=== PATIENT | female | born 1975 ===

== ENCOUNTER 2018-01-25 18:19 | Emergency (ER) | payer OTHER ==
[2018-01-25 18:24] VITALS: BMI 40.8
[2018-01-25 18:42] VITALS: BP 123/77; PULSE 93; TEMP 97.9
--- NOTE | 2018-01-25 18:55 | PDOC ---
History of Present Illness - General Chief Complaint: Pain, Acute Stated Complaint: BILAT KNEE /LEG PAIN Time Seen by Provider: 01/25/18 18:25 History Source: Patient Exam Limitations: No Limitations - History of Present Illness Initial Comments: 01/25/18 18:53 42y F hx of ossible arhthritis presents with 2 weeks of b/l knee pain. Pt states it started off with pain in the L leg, associated with some swelling and possible flea bites from a neighbors home. The pain spread within a day to the other leg, also associated with some pruritic bites and leg swelling. Pt notse some subjective chills, but denies any fevers, sob, cp, hemoptysis/cough, abd pain, n/v, diaphoresis, diarrhea, melena, bpr, dysuria, freuency, hematuria. no recent travel or known sick contacts. Pt nots she sometimes has swelling of her legs but never this bad. Past History - Past Medical History Allergies/Adverse Reactions: Allergies Allergy/AdvReac Type Severity Reaction Status Date / Time No Known Allergies Allergy Verified 01/25/18 18:20 Home Medications: Ambulatory Orders Cephalexin Monohydrate [Keflex -] 500 mg PO Q6H #28 capsule 01/25/18 CVA: No COPD: No - Suicide/Smoking/Psychosocial Hx Smoking History: Never smoked Hx Alcohol Use: No Drug/Substance Use Hx: No Substance Use Type: None Review of Systems - Review of Systems Able to Perform ROS?: Yes Comments:: 01/25/18 19:24 Constitutional - no reported Fever, Chills, HEENT: no reported vision changes, sore throat Respiratory: no reported cough, sob, hemoptysis Cardiac: no reported chest pain, palpitations, light headedness, leg swelling Abd/GI: no reported abd pain, nausea, vomiting, blood per rectum, melena, diarrhea : no reported dysuria, frequency, discharge Musculskelatal - +leg edema and pain no reported back pain, joint swelling skin - no reported bruising, erythema, rash neurological: no reported headache, numbness, focal weakness, tingling, ataxia, hematologic: no reported easy bruising, easy bleeding *Physical Exam - Vital Signs Last Vital Signs Temp Pulse Resp BP Pulse Ox 97.9 F 93 H 18 123/77 100 01/25/18 18:20 01/25/18 18:20 01/25/18 18:20 01/25/18 18:20 01/25/18 18:20 - Physical Exam Comments: 01/25/18 19:24 GENERAL: The patient is awake, alert, and fully oriented, Nontoxic - in no acute distress, obese HEAD: Normocephalic, atraumatic. EYES: extraocular movements intact, sclera anicteric, conjunctiva clear. ENT: Normal voice, Moist mucous membranes. NECK: Normal range of motion, supple LUNGS: Breath sounds equal, clear to auscultation bilaterally. No wheezes, no rhonchi, no rales. HEART: Regular rate and rhythm, normal S1 and S2 without murmur, rub or gallop. ABDOMEN: Soft, nontender, normoactive bowel sounds. No guarding, no rebound. . No CVA tenderness EXTREMITIES: Normal range of motion, tense edema to b/l LE (R>L), occasional hyperpigemented areas that appear to be old insect bites on the L schumacher upper schumacher, left distal schumacher. diffuse mild tenderness to palaption. neg homans sign, mild warmth to palpation on L anterior schumacher NEUROLOGICAL: No facial assymetry, Normal speech, movinga ll 4 extremities spontaneously and symmetrically PSYCH: Normal mood, normal affect. SKIN: Warm, Dry, normal turgor, Heart Score/ECG Review - ECG Impressions Comment:: 01/25/18 19:55 Twelve-lead EKG was performed and reviewed by me. There is normal sinus rhythm with a normal rate. Rate of 72 The axis is normal. The intervals are normal. There is normal R wave progression There are no ST or T wave abnormalities. 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 no prior hx of dvt/pe, not on ocps. xrays neg for pathology will obtain DVT study, if neg, will treat for cellulitis 01/25/18 21:41 pt declines staying for DVT study will leave AMA will treat with ABX, she will return tomorrwo for her DVT study.I discussed concern for DVT possibly progressing to PE she states she understands but needs to leave as her son neds to get to work. Patient is alert and oriented, and expressed that they would like to leave AGAINST MEDICAL ADVICE. I discussed with them the risks of leaving include , pulmonary embolsim, respiratory failure, cardiac arrest. I believe that the patient understands our discussion and is capable of making an informed decision about leaving against medical advice. I also discussed with the patient that they may return at any time to complete their workup. *DC/Admit/Observation/Transfer Diagnosis at time of Disposition: Leg swelling - Discharge Dispostion Disposition: AGAINST MEDICAL ADVICE Decision to Admit order: No - Prescriptions Prescriptions: Cephalexin Monohydrate [Keflex -] 500 mg PO Q6H #28 capsule - Referrals Referrals: Brady Ferrari [Other] - Patient Instructions Printed Discharge Instructions: DI for Dependent Edema Additional Instructions: You are leaving against medical advice. We have not completed your workup. We are pending an ultrasound of your legs to r/o a blood clot. You were written a prescription for keflex (an antibiotic) for cellulitis. Take the medications as prescribed return at any time to have your DVT. Return to the emergency department if you havea ny shortness of breath, chest pain, or are coughing blood. Print Language: AZERI - Post Discharge Activity
[2018-01-25] MEDS ORDERED: traMADol HCL 50 MG TABLET PO ONE (19:27)
[2018-01-25] MEDS ORDERED: traMADol HCL 50 MG TABLET ONE (19:38)
[2018-01-25 19:49] LABS: BASO % 1.5 % (0-2.0); EOS % 3.3 % (0-4.5); HEMATOCRIT 33.8 % (32.4-45.2); HEMOGLOBIN 10.9 GM/dl (10.7-15.3); MCH 25.2 pg (25.7-33.7); MCHC 32.3 g/dl (32.0-36.0); MEAN CELL VOLUME 78.1 fl (80-96); MEAN PLT VOLUME 7.4 fl (7.5-11.1); NEUT % 65.5 % (42.8-82.8); PLATELET COUNT 382 K/MM3 (134-434); RBC 4.33 M/mm3 (3.60-5.2); RDW 14.6 % (11.6-15.6); WHITE BLOOD COUNT 7.8 K/mm3 (4.0-10.8)
[2018-01-25 19:52] LABS: LYMPH % 21.7 % (8-40)
[2018-01-25 20:04] LABS: ALBUMIN 3.4 g/dl (3.5-5.0); ALK PHOS 95 U/L (32-92); ANION GAP 7 MMOL/L (8-16); BILIRUBIN,TOTAL 0.4 mg/dl (0.2-1.0); BLOOD UREA NITROGEN 10 mg/dl (7-18); CALCIUM 8.8 mg/dl (8.4-10.2); CHLORIDE 102 mmol/L (98-107); CO2 25 mmol/L (22-28); CREATININE 0.7 mg/dl (0.6-1.3); GLUCOSE,RANDOM 99 mg/dl (74-106); POTASSIUM 3.8 mmol/L (3.5-5.1); SGOT/AST 18 U/L (10-42); SGPT/ALT 18 U/L (10-40); SODIUM 134 mmol/L (136-145)
[2018-01-25] MEDS ORDERED: CEPHALEXIN MONOHYDRATE 500 MG CAPSULE (UD) PO ONE (21:40)
[2018-01-25] MEDS ORDERED: CEPHALEXIN MONOHYDRATE 500 MG CAPSULE (UD) ONE (21:42)
[2018-01-25 21:45] LABS: N-TERMINAL BNP 44.5 pg/ml (5-125)
--- NOTE | 2018-01-29 23:52 | EKG ---
Test Reason : Blood Pressure : / mmHG Vent. Rate : 072 BPM Atrial Rate : 072 BPM P-R Int : 156 ms QRS Dur : 070 ms QT Int : 418 ms P-R-T Axes : 066 031 039 degrees QTc Int : 457 ms NORMAL SINUS RHYTHM NORMAL ECG NO PREVIOUS ECGS AVAILABLE Confirmed by EZRA RAINEY MD ([id number]) on 01/29/2018 11:52:21 PM Referred By: DR EMMANUEL Confirmed By:EZRA RAINEY MD
== END 2018-01-25 21:53 | disposition left against medical advice (07) ==
LOC: FER 18:19
DX: M79.89 Other specified soft tissue disorders (principal)
CPT/HCPCS: 36415; 71046-TC-FY; 73560-TC-LT-FY; 73560-TC-RT-FY; 80053; 83880; 85025; 93005; 99282-25

== ENCOUNTER 2018-01-31 01:40 | Emergency (ER) | payer OTHER ==
[2018-01-31 01:48] VITALS: BP 132/68; PULSE 88; TEMP 98.1; BMI 40.8
--- NOTE | 2018-01-31 02:01 | PDOC ---
History of Present Illness - General Chief Complaint: Pain Stated Complaint: LT LEG PAIN/REDNESS Time Seen by Provider: 01/31/18 01:55 History Source: Patient Exam Limitations: No Limitations - History of Present Illness Initial Comments: 01/31/18 01:59 This is a 42-year-old female who comes in for a ultrasound of her left lower extremity. Patient was here 5 days ago and told she needed an ultrasound however she did not want to wait then for the ultrasound. So she left and now is back this morning for an ultrasound. patient otherwise denies any chest pain , shortness of breath, nausea vomiting or diarrhea. patient denies history of dvts in the past. Patient is currently on keflex as the ED doctor from her prior visit that there may be a infectious component to it so started her on the Keflex. Patient said she has been compliant with taking Keflex. PAST MEDICAL HISTORY: no significant history PAST SURGICAL HISTORY: no significant history FAMILY HISTORY: no pertinant history SOCIAL HISTORY: Pt lives with family and is employed. MEDICATIONS: reviewed ALLERGIES: As per nursing notes ROS General: No fevers or chills, no weakness, no weight loss HEENT: No change in vision. No sore throat,. No ear pain CardioVascular: No chest pain or shortness of breath Respiratory:No cough, or wheezing. Gastrointestinal: no nausea, vomiting, diarrhea or constipation, No rectal bleeding Genitourinary: No dysuria, hematuria, or frequency Musculoskeletal: . No joint pain or swelling, leg discomfort Neurologic: No headache, vertigo, dizziness or loss of consciousness Psychiatric: nor depression Skin: No rashes or easy bruising Endocrine: no increased thirst or abnormal weight change Allergic: no skin or latex allergy All other systems reviewed and normal GENERAL: The patient is a morbidly obese women. She is awake, alert, and fully oriented, in no acute distress. HEAD: Normal with no signs of trauma. EARS: Bilateral ears are normal. EYES: Pupils equal, round and reactive to light, extraocular movements intact, sclera anicteric, conjunctiva clear. EXTREMITIES: Normal range of motion, + mild edema left lower extremity, there is no erythema or discharge. NEUROLOGICAL: Normal speech, normal gait. grossly intact PSYCH: Normal mood, normal affect. SKIN: Warm, Dry, normal turgor, no rashes or lesions noted. Assessment and plan: This is a 42-year-old female who comes in 5 days after she was told she should have a DVT scan. However Ultrasound was negative for DVT. Patient sleeping comfortably, patient discharged home Past History - Past Medical History Allergies/Adverse Reactions: Allergies Allergy/AdvReac Type Severity Reaction Status Date / Time No Known Allergies Allergy Verified 01/25/18 18:20 Home Medications: Ambulatory Orders Cephalexin Monohydrate [Keflex -] 500 mg PO Q6H #28 capsule 01/25/18 CVA: No COPD: No - Suicide/Smoking/Psychosocial Hx Smoking History: Never smoked Hx Alcohol Use: No Drug/Substance Use Hx: No Substance Use Type: None *Physical Exam - Vital Signs Last Vital Signs Temp Pulse Resp BP Pulse Ox 98.1 F 88 18 132/68 100 01/31/18 01:41 01/31/18 01:41 01/31/18 01:41 01/31/18 01:41 01/31/18 01:41 *DC/Admit/Observation/Transfer Diagnosis at time of Disposition: Leg swelling - Discharge Dispostion Disposition: HOME Condition at time of disposition: Stable Decision to Admit order: No - Referrals Referrals: ON STAFF,NOT [Primary Care Provider] - - Patient Instructions Additional Instructions: Call your doctor this morning and follow-up with your doctor today. Return to the emergency department immediately with ANY new, persistent or worsening symptoms. Continue any medications as previously prescribed by your physician. You should follow up with your primary doctor as soon as possible regarding today's emergency department visit. . Please make sure your doctor reviews the results of your emergency evaluation. Thank you for coming to the Emergency Department today for your care. It was a pleasure to see you today. Please note that your evaluation is INCOMPLETE until you follow-up with your doctor. - Post Discharge Activity
== END 2018-01-31 04:30 | disposition home or self-care (01) ==
LOC: FER 01:40
DX: M79.89 Other specified soft tissue disorders (principal)
CPT/HCPCS: 93971-TC; 99282-25